=== PATIENT | male | born 1990 | race Caucasian/White ===

== ENCOUNTER → 2020-06-10 | Emergency (ER) | payer MEDICAID ==
[~2020-06-10] VITALS: Ht 170.2 cm; Wt 75.0 kg
[2020-06-10 19:43] VITALS: BP 136/91
--- NOTE | 2020-06-10 20:18 | NUR ---
Phlebotomy came to me regarding patient refusing blood draw. Spoke with patient regarding this and he stated that he has his kids at home and he, "doesn't have time for that". I told patient that he is able to leave if he wants, but if symptoms worsen he should return. He said he might be back tomorrow. Juan FLORES aware.
== END | disposition left against medical advice (07) ==
LOC: ER 21:17
DX: R10.9 Unspecified abdominal pain (principal); R11.10 Vomiting, unspecified; Z53.21 Procedure and treatment not carried out due to patient leaving prior to being seen by health care provider